=== PATIENT | female | born 1970 | race Two or more races ===

== ENCOUNTER → 2017-07-21 | Outpatient (CLI) | payer OTHER ==
--- NOTE | ~2017-07-21 | MY29 ---
[facility] A Service of [facility] RADIOLOGY TEXT RESULTS PATIENT: FARHAD QUIORS LOCATION: [facility] : 74 UNIT #: [id number] AGE: [address]: Abel Sheehan MD SEX: F ORDER DR: [id number] [facility] [address] [place], [place] [address] [id number] O MR#: [id number] Acc #: [id number] NAME: FARHAD QUIROS : 1970 SEX: F STUDY DATE/TIME: 07/21/2017 12:30 UNIT: [facility] ROOM: STUDY DESCRIPTION: MY TOSHIA SCREENING W/ CAD BILAT Attending Physician: Abel Sheehan M.D. Referring Physician: Abel Sheehan M.D. Ordering Physician: Abel Sheehan M.D. Primary Care Physician: Abel Sheehan M.D. MEDICAL IMAGING REPORT This report is preliminary unless electronic signature is present EXAM Digital screening mammogram 07/21/2017, [facility]. HISTORY 46-year-old woman, no risk elevation. Annual screening. COMPARISON None available. Previous mammogram in [place]. FINDINGS Digital imaging of each breast was completed utilizing screening protocol. Review includes FDA-approved CAD device. Breast parenchyma is fatty replaced. Approximate 1 cm well-circumscribed benign nodule projects mid inner right breast. I see no suspicious breast mass or suspicious microcalcifications and no architectural distortion. IMPRESSION Benign mammogram. Annual screening recommended. Patients over the age of 40 are entered into a reminder system with target due date for the next mammogram. A result letter will be sent to the patient. BIRADS: 2 Benign findings. Dictated by... Paul Joshua M.D. THIS IS AN ELECTRONICALLY VERIFIED REPORT Paul Joshua M.D. at 07/23/2017 12:02 PM VITALIY/ijeoma TD: 07/21/2017 15:42 [facility] A Service of [facility] RADIOLOGY TEXT RESULTS PATIENT: FARHAD QUIROS LOCATION: [facility] : 74 UNIT #: [id number] AGE: [address]: Abel Sheehan MD SEX: F ORDER DR: JOB #: [id number] MEDICAL IMAGING REPORT Page 1 of 1 COPY
== END | disposition home or self-care (01) ==
LOC: CWCC 07-20 10:45
DX: Z12.31 Encounter for screening mammogram for malignant neoplasm of breast (principal)
CPT/HCPCS: G0202